=== PATIENT | female | born 1935 | race Two or more races ===

== ENCOUNTER 2022-07-26 15:30 | Emergency (ER) | payer OTHER ==
[~2022-07-26] VITALS: Ht 152.4 cm; Wt 53.2 kg
[2022-07-26 15:53] VITALS: BP 145/82
[2022-07-26] MEDS ORDERED: HYDROcodone-ACET 5/325MG TAB PO ONE (17:45)
== END 2022-07-26 18:29 | disposition home or self-care (01) ==
LOC: ER 15:30
DX: S01.411A Laceration without foreign body of right cheek and temporomandibular area, initial encounter (principal); E78.5 Hyperlipidemia, unspecified; Z86.73 Personal history of transient ischemic attack (TIA), and cerebral infarction without residual deficits; W18.09XA Striking against other object with subsequent fall, initial encounter; Y93.01 Activity, walking, marching and hiking; Y92.89 Other specified places as the place of occurrence of the external cause; Y99.8 Other external cause status
CPT/HCPCS: 12011; 70450